=== PATIENT | female | born 1985 | race Caucasian/White ===

== ENCOUNTER → 2017-08-02 | Outpatient (CLI) | payer OTHER ==
[~2017-08-02] MED LIST: METOCLOPRAMIDE; PEPCID40 MG PO; PHENERGAN 25 MG25 M1 PO; PRENATAL; ZOFRAN; ZOFRAN8 MG
== END ==
LOC: M.CT 16:00
DX: R59.0 Localized enlarged lymph nodes (principal)

== ENCOUNTER → 2018-08-22 | Outpatient (CLI) | payer OTHER | LOC: M.ULTRA 08-20 11:19 | DX: N83.02 Follicular cyst of left ovary (principal); N83.01 Follicular cyst of right ovary; N39.0 Urinary tract infection, site not specified; R16.1 Splenomegaly, not elsewhere classified ==